=== PATIENT | male | born 1965 | race Caucasian/White ===

== ENCOUNTER 2024-04-25 10:33 | Day surgery (SDC) | payer MEDICAID ==
[~2024-04-25 10:33] MED LIST: Midazolam 1 MG/ML 2 ML SDV ONE; Propofol 200 MG/20 ML SDV ONE; Sodium Chloride 0.9% 10 ML Syringe FLUSH PRN
[2024-04-25] MEDS: Lactated Ringers 1,000 ML IV SCH (11:25)
[2024-04-25] MEDS ORDERED: Glycopyrrolate 0.2 MG/ML SDV IVPUSH ONE (12:10)
[2024-04-25] MEDS ORDERED: Propofol 200 MG/20 ML SDV ONE (13:06)
[2024-04-25 13:23] VITALS: BP 117/78; PULSE 97
== END 2024-04-25 14:19 | disposition home or self-care (01) ==
LOC: LL.SDS 10:33
PROVIDERS: ATTEND Surgery
DX: Z12.11 Encounter for screening for malignant neoplasm of colon (principal); D12.3 Benign neoplasm of transverse colon; D12.0 Benign neoplasm of cecum; R19.5 Other fecal abnormalities; K21.00 Gastro-esophageal reflux disease with esophagitis, without bleeding; K26.9 Duodenal ulcer, unspecified as acute or chronic, without hemorrhage or perforation; K22.2 Esophageal obstruction; J45.40 Moderate persistent asthma, uncomplicated; E66.813 Obesity, class 3; Z68.42 Body mass index [BMI] 45.0-49.9, adult
CPT/HCPCS: 00813; J1596; J2250; J2704; J7120